=== PATIENT | female | born 1935 | race Caucasian/White ===

== ENCOUNTER 2019-03-17 00:17 | Emergency (ER) | payer MEDICARE, MEDICAID ==
[~2019-03-17] VITALS: Ht 152.4 cm; Wt 54.0 kg
[2019-03-17] MEDS ORDERED: TETANUS, DIPHTHERIA, PERTUSSIS VAC/PF 0.5ML (>7YR OLD) IM ONE (02:15)
[2019-03-17] MEDS ORDERED: ACETAMINOPHEN 325MG TABLET PO ONE (02:15)
[2019-03-17] MEDS ORDERED: BACITRACIN ZINC OINT UDPKT TOP ONE (02:15)
[2019-03-17 02:45] VITALS: BP 155/92
== END 2019-03-17 05:17 | disposition home or self-care (01) ==
LOC: ER 00:17
DX: S09.8XXA Other specified injuries of head, initial encounter (principal); S00.83XA Contusion of other part of head, initial encounter; W08.XXXA Fall from other furniture, initial encounter; Y93.89 Activity, other specified; Y92.811 Bus as the place of occurrence of the external cause
CPT/HCPCS: 70486; 90471; 90715; 99284

== ENCOUNTER 2019-04-27 21:04 | Inpatient (IN) | payer MEDICARE, MEDICAID ==
[~2019-04-27] VITALS: Ht 154.9 cm; Wt 65.8 kg
[2019-04-27 22:27] LABS: BASOPHILS % 0.3 % (0.0-2.0); HEMATOCRIT. 39.3 % (36.0-48.0); HEMOGLOBIN. 12.8 g/dL (12.0-16.0); LYMPHOCYTES % 13.4 % (20.0-50.0); MEAN CORPUSCULAR HEMOGLOBIN 27.3 pg (28.0-32.0); MEAN CORPUSCULAR VOLUME 83.9 fL (81.0-99.0); MEAN PLATELET VOLUME 7.3 fl (7.4-10.4); MONOCYTES % 9.6 % (2.0-8.0); NEUTROPHILS % 76.7 % (40.0-76.0); PLATELET 237 x1000/uL (130-400); RED BLOOD CELL COUNT 4.69 mill/uL (4.2-5.4); RED CELL DISTRIBUTION WIDTH 14.3 % (11.6-14.6)
[2019-04-27 22:33] LABS: CHLORIDE 102 mEq/L (98-107)
[2019-04-27 22:36] LABS: PARTIAL THROMBOPLASTIN TIME 29.2 sec (23.4-31.0); PROTHROMBIN TIME 10.7 sec (9.6-11.0)
[2019-04-27] MEDS ORDERED: SODIUM CHLORIDE 0.9% 1,000 ML IV ONE (23:15)
[2019-04-28] MEDS ORDERED: ASPIRIN 325MG EC TABLET PO NR (00:30)
[2019-04-28 00:57] LABS: CLARITY URINE CLEAR (CLEAR); COLOR URINE YELLOW (YELLOW); KETONES URINE NEGATIVE (NEGATIVE); LEUKOCYTE ESTERASE URINE NEGATIVE (NEGATIVE); NITRITE URINE NEGATIVE (NEGATIVE); OCCULT BLOOD URINE 1+ (NEGATIVE); PH URINE 6.5 (4.5-8.0); PROTEIN URINE NEGATIVE (NEGATIVE); SPECIFIC GRAVITY URINE 1.008 (1.005-1.030); UROBILINOGEN URINE 0.2 E.U./dL (0.2-1.0)
[2019-04-28 16:00] VITALS: BP 145/77
[2019-04-28] MEDS ORDERED: CLONIDINE 0.1MG TABLET PO PRN (17:00)
[2019-04-28] MEDS ORDERED: ACETAMINOPHEN 325MG TABLET PO PRN (17:00)
[2019-04-28] MEDS ORDERED: ONDANSETRON HCL 4MG/2ML INJ IV PRN (17:00)
[2019-04-28 17:41] VITALS: BP 145/77
[2019-04-28 20:00] VITALS: BP 142/78
[2019-04-28 22:00] VITALS: BP 180/75
[2019-04-28] MEDS: CEFTRIAXONE 1 G PREMIX 50 ML IV SCH (23:05)
[2019-04-28] MEDS: OSELTAMIVIR 75MG CAPSULE PO SCH (23:05)
[2019-04-29 04:00] VITALS: BP 118/76
[2019-04-29 06:48] LABS: BASOPHILS % 0.4 % (0.0-2.0); EOSINOPHILS % 0.4 % (0.0-5.0); HEMOGLOBIN. 12.5 g/dL (12.0-16.0); LYMPHOCYTES % 25.8 % (20.0-50.0); MEAN PLATELET VOLUME 7.3 fl (7.4-10.4); MONOCYTES % 9.8 % (2.0-8.0); NEUTROPHILS % 63.6 % (40.0-76.0); PLATELET 215 x1000/uL (130-400); RED BLOOD CELL COUNT 4.46 mill/uL (4.2-5.4); RED CELL DISTRIBUTION WIDTH 14.4 % (11.6-14.6)
[2019-04-29 07:24] LABS: CHLORIDE 105 mEq/L (98-107)
[2019-04-29 08:00] VITALS: BP 129/58
[2019-04-29] MEDS: OSELTAMIVIR 75MG CAPSULE PO SCH ×2 (09:57→18:06)
[2019-04-29] MEDS: ASPIRIN 81MG TABLET PO SCH (09:57)
[2019-04-29] MEDS ORDERED: POTASSIUM CHLORIDE 20MEQ/PACKET PO ONE (11:30)
[2019-04-29 12:00] VITALS: BP 113/58
[2019-04-29] MEDS: LORAZEPAM 1MG TABLET PO PRN (12:13)
[2019-04-29] MEDS: LEVOTHYROXINE SODIUM 50MCG TABLET PO SCH (14:42)
[2019-04-29 16:00] VITALS: BP 127/64
[2019-04-29 20:00] VITALS: BP 106/66
[2019-04-29] MEDS: CEFTRIAXONE 1 G PREMIX 50 ML IV SCH (20:52)
[2019-04-30] VITALS: BP 127/65
[2019-04-30 04:37] VITALS: BP 106/59
[2019-04-30 07:10] LABS: BASOPHILS % 0.6 % (0.0-2.0); EOSINOPHILS % 0.7 % (0.0-5.0); HEMOGLOBIN. 12.2 g/dL (12.0-16.0); LYMPHOCYTES % 31.4 % (20.0-50.0); MEAN CORPUSCULAR HEMOGLOBIN 27.8 pg (28.0-32.0); MEAN PLATELET VOLUME 7.5 fl (7.4-10.4); MONOCYTES % 7.5 % (2.0-8.0); NEUTROPHILS % 59.8 % (40.0-76.0); PLATELET 211 x1000/uL (130-400); RED BLOOD CELL COUNT 4.41 mill/uL (4.2-5.4); RED CELL DISTRIBUTION WIDTH 14.6 % (11.6-14.6)
[2019-04-30 07:14] LABS: CHLORIDE 106 mEq/L (98-107)
[2019-04-30 08:00] VITALS: BP 129/64
[2019-04-30] MEDS: LEVOTHYROXINE SODIUM 50MCG TABLET PO SCH (08:20)
[2019-04-30] MEDS: OSELTAMIVIR 75MG CAPSULE PO SCH ×2 (08:20→16:13)
[2019-04-30] MEDS: ASPIRIN 81MG TABLET PO SCH (08:20)
[2019-04-30 12:00] VITALS: BP 136/58
[2019-04-30] MEDS: LORAZEPAM 1MG TABLET PO PRN (12:38)
[2019-04-30] MEDS ORDERED: LEVO50TA8 MT (13:08)
[2019-04-30] MEDS ORDERED: TAM75 MT (13:08)
[2019-04-30 16:00] VITALS: BP 97/60
[2019-04-30 18:07] VITALS: BP 97/60
== END 2019-04-30 20:31 | disposition home or self-care (01) | DRG 871 ==
LOC: ER 21:04 → 5WST 04-28 01:36 → EDBEDREQ 04-28 01:38 → EDBEDREQTM 04-28 01:38 → ENRESERV 04-28 15:47
PROVIDERS: ADMIT Internal Medicine; ATTEND Internal Medicine
DX: A41.9 Sepsis, unspecified organism (principal); G93.41 Metabolic encephalopathy; E44.1 Mild protein-calorie malnutrition; E87.1 Hypo-osmolality and hyponatremia; J10.1 Influenza due to other identified influenza virus with other respiratory manifestations; F03.90 Unspecified dementia, unspecified severity, without behavioral disturbance, psychotic disturbance, mood disturbance, and anxiety; I10 Essential (primary) hypertension; Z68.27 Body mass index [BMI] 27.0-27.9, adult
CPT/HCPCS: 36415; 71045; 80048; 80053; 80061; 81003; 83880; 84443; 84484; 85025; 87804; 93005; 97162; 99285; J0696; J7030

== ENCOUNTER 2022-05-10 18:21 | Inpatient (IN) | payer OTHER, MEDICAID ==
[~2022-05-10] VITALS: Ht 162.6 cm; Wt 61.0 kg
[~2022-05-10 18:21] MED LIST: LEVO50TA8 MT; TAM75 MT
[2022-05-10 20:00] LABS: BASOPHILS % 0.5 % (0.0-2.0); EOSINOPHILS % 0.7 % (0.0-5.0); HEMATOCRIT. 36.4 % (36.0-48.0); HEMOGLOBIN. 12.2 g/dL (12.0-16.0); LYMPHOCYTES % 19.9 % (20.0-50.0); MEAN CORPUSCULAR HEMOGLOBIN 28.8 pg (28.0-32.0); MEAN CORPUSCULAR VOLUME 85.5 fL (81.0-99.0); MONOCYTES % 6.1 % (2.0-8.0); NEUTROPHILS % 72.8 % (40.0-76.0); PLATELET 332 x1000/uL (130-400); RED BLOOD CELL COUNT 4.25 mill/uL (4.2-5.4); RED CELL DISTRIBUTION WIDTH 14.9 % (11.6-14.6)
[2022-05-10 20:07] LABS: CHLORIDE 107 mEq/L (98-107)
[2022-05-10 22:02] LABS: CLARITY URINE CLOUDY (CLEAR); COLOR URINE YELLOW (YELLOW); KETONES URINE TRACE (NEGATIVE); LEUKOCYTE ESTERASE URINE 1+ (NEGATIVE); NITRITE URINE NEGATIVE (NEGATIVE); OCCULT BLOOD URINE 2+ (NEGATIVE); PH URINE 5.5 (4.5-8.0); PROTEIN URINE 1+ (NEGATIVE); SPECIFIC GRAVITY URINE 1.021 (1.005-1.030)
[2022-05-10] MEDS ORDERED: ASPIRIN 81MG TABLET PO ONE (23:30)
[2022-05-10] MEDS ORDERED: CEFTRIAXONE 1 G PREMIX 50 ML IV ONE (23:30)
[2022-05-10] MEDS ORDERED: CLOPIDOGREL 75MG TABLET PO ONE (23:30)
[2022-05-10] MEDS ORDERED: SODIUM CHLORIDE 0.9% 1,000 ML IV ONE (23:30)
[2022-05-11] MEDS: CEFTRIAXONE 1 G PREMIX 50 ML IV NR ×5 (03:58→04:22)
[2022-05-11] MEDS ORDERED: ACETAMINOPHEN 325MG TABLET PO PRN (08:00)
[2022-05-11] MEDS ORDERED: ONDANSETRON HCL 4MG/2ML INJ IV PRN (08:00)
[2022-05-11] MEDS: ENOXAPARIN 30MG/0.3ML SYR SUBCUT SCH (11:07)
[2022-05-11] MEDS: ASPIRIN 81MG TABLET PO SCH (11:07)
[2022-05-11 11:24] VITALS: BP 136/59
[2022-05-11] MEDS ORDERED: NEPVIT MT (11:50)
[2022-05-11] MEDS ORDERED: AMLO1TAB98 MT (11:50)
[2022-05-11] MEDS ORDERED: DONE-53 PO (11:50)
[2022-05-11] MEDS ORDERED: MEGE40TA8 PO (11:50)
[2022-05-11 12:00] VITALS: BP 136/59
[2022-05-11 16:00] VITALS: BP 112/79
[2022-05-11 20:00] VITALS: BP 129/89
[2022-05-11] MEDS ORDERED: ATORVASTATIN CALCIUM 40MG TABLET PO SCH (21:00)
[2022-05-12] VITALS: BP 133/67
[2022-05-12 04:00] VITALS: BP 106/73
[2022-05-12 08:00] VITALS: BP 134/60
[2022-05-12] MEDS: ASPIRIN 81MG TABLET PO SCH (08:20)
[2022-05-12] MEDS: ENOXAPARIN 30MG/0.3ML SYR SUBCUT SCH (08:20)
[2022-05-12] MEDS ORDERED: MEMANTINE HCL 5MG TABLET PO SCH (09:00)
[2022-05-12 09:57] LABS: VITAMIN B12 SERUM > 2000.0 pg/mL (211-911)
[2022-05-12 11:57] VITALS: BP 133/64
[2022-05-12] MEDS ORDERED: LEVOTHYROXINE SODIUM 50MCG TABLET PO SCH (12:15)
[2022-05-12 12:45] VITALS: BP 133/64
== END 2022-05-12 17:59 | disposition home health service (06) | DRG 71 ==
LOC: ER 18:21 → 8WST 05-11 00:50 → EDBEDREQDT 05-11 00:55 → EDBEDREQ 05-11 00:55 → EDBEDREQTM 05-11 00:55 → ENRESERV 05-11 07:13
PROVIDERS: ADMIT Internal Medicine; ATTEND Internal Medicine
PROC: 4A00X4Z Measurement of Central Nervous Electrical Activity, External Approach (ICD-10-PCS; principal; 2022-05-12)
DX: G93.41 Metabolic encephalopathy (principal); E44.1 Mild protein-calorie malnutrition; E11.9 Type 2 diabetes mellitus without complications; J44.9 Chronic obstructive pulmonary disease, unspecified; R62.7 Adult failure to thrive; Z20.822 Contact with and (suspected) exposure to COVID-19; D72.829 Elevated white blood cell count, unspecified; F03.90 Unspecified dementia, unspecified severity, without behavioral disturbance, psychotic disturbance, mood disturbance, and anxiety; Z79.899 Other long term (current) drug therapy; Z68.23 Body mass index [BMI] 23.0-23.9, adult; Z86.73 Personal history of transient ischemic attack (TIA), and cerebral infarction without residual deficits; R27.0 Ataxia, unspecified
CPT/HCPCS: 36415; 70551; 71045; 80053; 81003; 82607; 84443; 84484; 85025; 87426; 93005; 95816; 97162; 99285; J0696; J1650; J7030